=== PATIENT | male | born 1990 | race Caucasian/White ===

== ENCOUNTER 2017-08-04 05:29 | Emergency (ER) | payer BC ==
[~2017-08-04] VITALS: Ht 177.8 cm; Wt 86.9 kg
[~2017-08-04 05:29] MED LIST: FLEXERIL10 MG PO; LORATADINE10 M2 PO; MOTRIN800 MG PO
[2017-08-04 05:55] LABS: HEMATOCRIT 49.8 % (38.0-50.0); MCH 28.9 PG (29.0-34.0); MCHC 34.3 G/DL (30.0-36.0); MCV 84.1 FL (86-99); MEAN PLAT.VOLUME 8.8 uM^3 (9.0-12.4); PLATELET COUNT 189 K/uL (156-360); RBC DIS.WIDTH-CV 11.9 % (11.8-14.6); RBC DIS.WIDTH-SD 35.8 % (39-53); RED BLOOD COUNT 5.92 M/uL (4.00-5.50); WHITE BLOOD COUNT 13.6 K/uL (4.1-10.2)
[2017-08-04 06:02] LABS: CHLORIDE 105 mEq/L (99-109); POTASSIUM 4.2 mEq/L (3.7-5.4); SODIUM 140 mEq/L (136-147)
[2017-08-04 06:03] LABS: GLUCOSE 101 mg/dL (70-99)
[2017-08-04 06:05] LABS: ANION GAP 12 MEQ/L (2-14)
[2017-08-04 06:07] LABS: GFR ESTIMATE (CALCULATED) > 59 mL/min/
[2017-08-04 06:08] LABS: UREA NITROGEN (BUN) 18 mg/dL (9-23)
[2017-08-04 06:53] LABS: ADD MIUA? YES; BILIRUBIN NEGATIVE; BLOOD SMALL; COLOR YELLOW ((YELLOW)); GLUCOSE (STRIP) NEGATIVE; KETONES NEGATIVE; LEUKOCYTES NEGATIVE; NITRITE NEGATIVE; PROTEIN (STRIP) NEGATIVE; SPECIFIC GRAVITY 1.028 (1.000-1.030); UROBILINOGEN 0.2 MG/DL (0.2-1.0)
[2017-08-04 07:43] LABS: BACTERIA RARE /HPF; EPITHELIAL CELLS NONE SEEN /HPF; MUCUS TRACE /LPF; UCUL ADDED? NO; WHITE BLOOD CELLS 0-5 /HPF (0-5)
[2017-08-04 08:45] LABS: LIPASE 19 U/L (1.0-51.0)
[2017-08-04] MEDS ORDERED: ZOFRAN ODT4 MG PO (09:16)
[2017-08-04 09:48] VITALS: BP 107/76
== END 2017-08-04 09:50 | disposition home or self-care (01) ==
LOC: EME 05:29
DX: B34.9 Viral infection, unspecified (principal); R11.2 Nausea with vomiting, unspecified
CPT/HCPCS: 80048; 81003; 83690; 85027; 99281; 99284; J2405; J7030